=== PATIENT | male | born 1980 | race Caucasian/White ===

== ENCOUNTER 2024-01-13 12:05 | Emergency (ER) | payer SELFPAY ==
[2024-01-13] VITALS (8 sets, daily range): BP systolic 117–149; BP diastolic 76–102; PULSE 58–90; RESP 14–17; TEMP 36.4; O2SAT 95–99; BMI 27.1
--- NOTE | 2024-01-13 12:56 | CT_ITS ---
WS: [id number] CT ABDOMEN AND PELVIS WITH CONTRAST HISTORY: RIGHT lower quadrant pain and vomiting. TECHNIQUE: Imaging performed of the abdomen and pelvis with IV contrast. Single phase imaging of the abdomen. Coronal and sagittal reformats are submitted. All CT scans at [facility] use at [address] one of these dose optimization techniques: automated exposure control; mA and/or kV adjustment per patient size (includes targeted exams where dose is matched to clinical indication); or iterative re construction. IV CONTRAST: Omnipaque 350; 100 mL IV. Oral contrast: No DLP: 665.90 mGy.cm COMPARISON: None available. Lower thorax: Lung bases are clear. Heart is normal size. Small hiatal hernia. Liver/biliary system: Normal size with no intrahepatic dilatation. Gallbladder: Normal. No gallstones or wall thickening. No pericholecystic fluid. Pancreas: Normal size pancreas and pancreatic duct. No adjacent inflammation. Spleen: Granuloma. Normal size. Adrenal glands: Normal. Right kidney: Mildly edematous enlarged kidney with delayed enhancement and excretion. Mild dilatatio n of the RIGHT renal pelvis and RIGHT ureter. There is a 3 mm calcification in the distal ureter near the UV junction. No abscess or infarct is identified. There is a very tiny hypodense cortical lesion which is probably a cyst. Left kidney: Normal. Aorta: Normal. Lymphadenopathy: None. Free fluid: None. GI tract: No obstruction. Appendix is not definitely visualized but there is no evidence for appendic itis. No colon obstruction. Abdominal wall: Fat containing umbilical hernia. Pelvis: Urinary bladder is not distended. No fluid in the pelvis. Bones: No acute destructive process. CT/CT abdomen pelvis w con* [id number] IMPRESSION: 1. Enlarged mildly edematous RIGHT kidney with mild RIGHT hydroureteronephrosi s. There is a 3 mm obstructing calcification in the distal RIGHT ureter. No jose al abscess but there is delayed excretion from the kidney due to the obstructio n. 2. Negative LEFT kidney. 3. The appendix is not definitely identified. No evidence for appendicitis.
--- NOTE | 2024-01-13 12:59 | ED_ITS ---
HPI - Abdominal Pain 2 General: Chief Complaint: Abdominal Pain Stated Complaint: abd pain, n, v Time Seen by Provider: 01/13/24 12:55 Source: patient Mode of arrival: ambulatory Limitations: no limitations History of Present Illness: 43-year-old male states has been having right lower abdominal pain since this morning. States been a sharp pain severe in nature he is rating it a 9 out of 10 he said vomiting with the pain. He denies any fevers denies any dysuria denies any worsening improving factors. Associated Symptoms: Reports nausea and vomiting; Denies chills, diarrhea and fever(s) Related Data Home Medications Medication Instructions Recorded Confirmed acetaminophen 325 mg tablet 325 mg PO QID PRN Pain 01/13/24 01/13/24 (Tylenol) Previous Rx's Medication Instructions Recorded mupirocin 2 % topical ointment 1 applic topical BID skin 08/05/23 infection #22 grams hydrocodone 5 mg-acetaminophen 325 1 tab PO Q6H PRN pain #14 tabs 01/13/24 mg tablet ondansetron 4 mg disintegrating 4 mg PO Q6H PRN nausea and 01/13/24 tablet vomiting #14 tabs Allergies Allergy/AdvReac Type Severity Reaction Status Date / Time No Known Allergies Allergy Unverified 08/05/23 09:26 Review of Systems 2 Const: Denies: fever(s), chills, body aches or change in appetite ENMT: Denies: throat pain or dental pain Card: Denies: chest pain Resp: Denies: dyspnea GI: Reports: abdominal pain, nausea and vomiting; Denies: diarrhea Musc: Denies: neck pain or back pain Skin/Breast: Denies: rash Neuro: Denies: headache(s) Physical Exam 2 Const: COMMON NORMALS: no acute distress, patient oriented x3 and healthy appearing HENMT: COMMON NORMALS: normocephalic and atraumatic HEAD & SCALP: n ormocephalic and atraumatic Eye: COMMON NORMALS: conjunctivae normal CONJUNCTIVA: Yes conjunctivae normal Neck/C-Spine: COMMON NORMALS: full ROM and supple Chest: COMMONS NORMALS: normal inspection of the chest and normal palpation of entire chest wall Resp: COMMON NORMALS: normal respiratory effort, No retractions, No use of accessory muscles and clear to auscultation bilaterally AUSCULTATION: clear to auscultation bilaterally Cardio: COMMON NORMALS: regular rate, regular rhythm and No murmurs present (Cardio) RATE: regular rate RHYTHM: regular rhythm GI: COMMON NORMALS: Normal to inspection, nondistended, normoactive bowel sounds present, Soft to palpation and no masses PALPATION: Yes Soft to palpation and Yes Tenderness to palpation present (GI) Details: RLQ Extremity: COMMON NORMALS: normal to inspection and full ROM Neuro: COMMON NORMALS: patient oriented x3, moves all extremities and no focal motor deficits Psych: COMMON NORMALS: mental status grossly normal, Normal thought process present and cooperative THOUGHT PROCESS: Normal thought process present Skin: COMMON NORMALS: no rashes or lesions noted and no wounds GENERAL SKIN EXAM: no rashes or lesions noted Course 2 Vital Signs: Vital signs: Vital Signs Temperature 97.6 F 01/13/24 12:13 Pulse Rate 81 01/13/24 15:56 Respiratory Rate 16 01/13/24 15:56 Blood Pressure 131/87 01/13/24 15:56 Pulse Oximetry 99 01/13/24 15:56 Oxygen Delivery Me thod Room Air 01/13/24 15:56 MDM - Abdominal Pain Medical Decision Making Patient presents here with right-sided pain he does have a kidney stone likely causing his pain no signs of infection no signs of UTI his pains much improved here we will prescribe him pain meds nausea medicine get him follow-up with urology he is return if worsening he understands agrees to plan Medical Records I reviewed the patient's medical records. Lab Data I reviewed the patient's lab results. 01/13/24 12:50 01/13/24 12:50 Labs/Radiology: Radiology Impressions Abdomen/Pelvis CT 01/13/24 12:56 IMPRESSION: 1. Enlarged mildly edematous RIGHT kidney with mild RIGHT hydroureteronephrosis. There is a 3 mm obstructing calcification in the distal RIGHT ureter. No renal abscess but there is delayed excretion from the kidney due to the obstruction. 2. Negative LEFT kidney. 3. The appendix is not definitely identified. No evidence for appendicitis. Laboratory Results WBC 9.47 10^3/uL (3.29-11.43) 01/13/24 12:50 RBC 5.19 10^6/uL (3.85-5.65) 01/13/24 12:50 Hgb 15.00 g/dL (11.27-16.99) 01/13/24 12:50 Hct 44.4 % (37-53) 01/13/24 12:50 MCV 85.5 fl (82-101) 01/13/24 12:50 MCH 28.9 pg (27-33) 01/13/24 12:50 MCHC 33.8 g/dL (30-55) 01/13/24 12:50 RDW 12.2 % (12.1-15.1) 01/13/24 12:50 Plt Count 254 10^3/cmm (157-399) 01/13/24 12:50 MPV 9.7 fL (7.4-10.4) 01/13/24 12:50 Neut % (Auto) 87.5 % 01/13/24 12:50 Lymph % (Auto) 7.9 % 01/13/24 12:50 Hamilton % (Auto) 4.0 % 01/13/24 12:50 Eos % (Auto) 0.1 % 01/13/24 12:50 Baso % (Auto) 0.2 % 01/13/24 12:50 Neut # (Auto) 8.28 10^3/uL (1.8-7.7) H 01/13/24 12:50 Lymph # (Auto) 0.8 10^3/uL (0.8-4.8) 01/13/24 12:50 Hamilton # (Auto) 0.4 10^3/uL (0.2-0.9) 01/13/24 12:50 Eos # (Auto) 0.0 10^3/uL (0.0-0.8) 01/13/24 12:50 Baso # (Auto) 0.0 10^3/uL (0.0-0.1) 01/13/24 12:50 Nucleated RBC % (auto) 0 % 01/13/24 12:50 Nucleated RBCs # 0.0 /100WBC 01/13/24 12:50 Sodium 140 mmol/L (136-145) 01/13/24 12:50 Potassium 4.2 mmol/L (3.5-5.1) 01/13/24 12:50 Chloride 105 mmol/L (98-107) 01/13/24 12:50 Carbon Dioxide 25 mmol/L (22-29) 01/13/24 12:50 Anion Gap 14.2 (5-19) 01/13/24 12:50 BUN 14 mg/dL (6-20) 01/13/24 12:50 Creatinine 0.8 mg/dL (0.7-1.2) 01/13/24 12:50 GFR Calculation 106.5 mL/min (90-130) 01/13/24 12:50 Glucose 135 mg/dL (65-115) H 01/13/24 12:50 Calculated Osmolality 293 mOsm/kg (285-295) 01/13/24 12:50 Calcium 9.5 mg/dL (8.5-10.5) 01/13/24 12:50 Total Bilirubin 0.4 mg/dL (0.15-1.2) 01/13/24 12:50 AST 25 U/L (0-40) 01/13/24 12:50 ALT 42 U/L (0-41) H 01/13/24 12:50 Alkaline Phosphatase 104 U/L (40-130) 01/13/24 12:50 Total Protein 7.4 g/dL (6.6-8.7) 01/13/24 12:50 Albumin 4.5 g/dL (3.5-5.2) 01/13/24 12:50 Globulin 2.9 g/dL (1.3-4.6) 01/13/24 12:50 Lipase 19 U/L (13-60) 01/13/24 12:50 Amorphous Sediment Not Reportable 01/13/24 15:16 All radiology interpretation(s) finalized by discharge Discharge Plan Discharge Patient Disposition: Home Clinical Impression: Kidney stone Condition: Stable Prescriptions: New hydrocodone-acetaminophen 5-325 mg tablet 1 tab PO Q6H PRN (Reason: pain) Qty: 14 0RF ondansetron 4 mg tablet,disintegrating 4 mg PO Q6H PRN (Reason: nausea and vomiting) Qty: 14 0RF No Action mupirocin 2 % ointment 1 applic topical BID Qty: 22 1RF acetaminophen [Tylenol] 325 mg Tablet 325 mg PO QID PRN (Reason: Pain) Discharge Orders: Discharge ED (Routine); Ordered 01/13/24 Ordered By: Tapan Moore Discharge Diet: Advance as tolerated Discharge Activity: Resume usual activity Patient Instructions: Kidney Stones (ED), Opioid Safety Coding Level of Care Code ED [employer] Workflow Consultant for Yuniel Agosto
[2024-01-13 13:12] LABS: Basophils % 0.2 %; Eosinophils % 0.1 %; Hematocrit 44.4 % (37-53); Lymphocytes # 0.8 10^3/uL (0.8-4.8); Lymphocytes % 7.9 %; Mean Corpuscular HGB Conc 33.8 g/dL (30-55); Mean Corpuscular Hemoglobin 28.9 pg (27-33); Mean Corpuscular Volume 85.5 fl (82-101); Mean Platelet Volume 9.7 fL (7.4-10.4); Monocytes # 0.4 10^3/uL (0.2-0.9); Neutrophils # 8.28 10^3/uL (1.8-7.7); Neutrophils % 87.5 %; Nucleated Red Blood Cells % 0 %; Platelet Count 254 10^3/cmm (157-399); Red Blood Count 5.19 10^6/uL (3.85-5.65); Red Cell Distribution Width 12.2 % (12.1-15.1); White Blood Count 9.47 10^3/uL (3.29-11.43)
[2024-01-13] MEDS: sodium chloride 0.9% 1,000 ML 999 ML IV (13:16)
[2024-01-13] MEDS: ondansetron 2 mg/ML SDV 2 mL 4 MG IVP (13:17)
[2024-01-13] MEDS: morphine 4 mg/mL SDV 1 mL IVP ×2 (13:18→14:19)
[2024-01-13 13:28] LABS: Alanine Aminotransferase 42 U/L (0-41); Albumin Level 4.5 g/dL (3.5-5.2); Alkaline Phosphatase 104 U/L (40-130); Anion Gap 14.2 (5-19); Aspartate Amino Transferase 25 U/L (0-40); Blood Urea Nitrogen 14 mg/dL (6-20); Calcium 9.5 mg/dL (8.5-10.5); Carbon Dioxide 25 mmol/L (22-29); Chloride 105 mmol/L (98-107); Creatinine Clr Calc Pharmacy 142.3936; Globulin 2.9 g/dL (1.3-4.6); Glomerular Filtration Rate 106.5 mL/min (90-130); Glucose 135 mg/dL (65-115); Lipase 19 U/L (13-60); Osmolality Calculated 293 mOsm/kg (285-295); Potassium 4.2 mmol/L (3.5-5.1); Sodium 140 mmol/L (136-145); Total Bilirubin 0.4 mg/dL (0.15-1.2); Total Protein 7.4 g/dL (6.6-8.7)
[2024-01-13] MEDS: iohexol 350 mg/mL 500 mL Btl (per mL) IV (13:46)
[2024-01-13] MEDS: ketorolac 30 mg/mL INJ 15 MG IVP (14:17)
[2024-01-13 16:47] LABS: Add Urine Microscopic? YES; Bacteria Urine None Seen /hpf; Bilirubin Urine Negative (Negative); Blood Urine Negative (Negative); Glucose Urine UA Negative (Normal); Hyaline Casts Urine 0-4 /lpf; Ketones Urine Negative (Negative); Leukocyte Esterase Urine Negative (Negative); Nitrate Urine Negative (Negative); Protein Urine Negative (Negative); RBC Urine 0-2 /hpf (0-2); Squamous Epithelial Cell Urine 0-5 /hpf (0-5); Urine Appearance Clear (CLEAR); Urine Color Yellow (Yellow); Urobilinogen Urine 0.2 mg/dL (Negative); WBC Urine 0-5 /hpf (0-5)
[2024-01-13 16:48] LABS: Specific Gravity, Urine 1.067 (1.005-1.030)
== END 2024-01-13 17:16 | disposition home or self-care (01) ==
PROVIDERS: Emergency Provider Emergency Medicine
DX: N13.2 Hydronephrosis with renal and ureteral calculous obstruction (principal)
CPT/HCPCS: 36415; 74177; 80053; 81001; 83690; 85025; 96361; 96374; 96375; 96376; 99285; J1885; J2270; J2405; J7030